=== PATIENT | female | born 1955 | race Native Hawaiian/Other Pacific Islander ===

== ENCOUNTER 2018-11-29 10:57 | Observation (INO) | payer BC, OTHER ==
[2018-11-29] MEDS ORDERED: Sodium Chloride 0.9% 500 ML IV STA (11:38)
[2018-11-29] MEDS ORDERED: Sodium Chloride 0.9% 500 ML IV ONE (11:54)
[2018-11-29 11:57] LABS: BASO % 0.7 % (0.0-2.0); EOS # 0.2 K/uL (0.0-0.7); EOS % 2.8 % (0.0-4.0); HEMOGLOBIN 14.2 g/dL (11.0-16.0); LYMPH # 0.9 K/uL (1.0-4.3); LYMPH % 14.4 % (20.0-40.0); MEAN CELL VOLUME 92.3 fL (81.0-99.0); MEAN CORPUSCULAR HEMOGLOBIN 31.3 pg (27.0-31.0); MEAN CORPUSCULAR HGB CONC 33.9 g/dL (33.0-37.0); MEAN PLATELET VOLUME 8.8 fL (7.2-11.7); MONO # 0.3 K/uL (0.0-0.8); MONO % 4.2 % (0.0-10.0); NEUT # 4.9 K/uL (1.8-7.0); NEUT % 77.9 % (50.0-75.0); RBC 4.54 Mil/uL (3.80-5.20); RED CELL DISTRIBUTION WIDTH 13.6 % (11.5-14.5); WHITE BLOOD COUNT 6.2 K/uL (4.8-10.8)
[2018-11-29 12:09] LABS: ALB/GLOB RATIO 1.4 (1.0-2.1); ALBUMIN 4.2 g/dL (3.5-5.0); ALT/SGPT 51 U/L (9-52); AST/SGOT 48 U/L (14-36); BLOOD UREA NITROGEN 9 mg/dL (7-17); CALCIUM 9.6 mg/dl (8.6-10.4); GFR NON-AFRICAN AMERICAN > 60
[2018-11-29 12:20] LABS: CK-MB 0.37 ng/mL (0.0-3.38)
--- NOTE | 2018-11-29 12:35 | RAD ---
Date of service: 11/29/2018 PROCEDURE: CHEST RADIOGRAPH, 1 VIEW HISTORY: syncope COMPARISON: None available. FINDINGS: LUNGS: The lungs are well inflated and clear. There is discoid atelectasis/scarring in the left mid lung. PLEURA: No pneumothorax or pleural effusion. CARDIOVASCULAR: The heart is normal in size. No aortic atherosclerotic calcifications present. OSSEOUS STRUCTURES: Within normal limits for the patient's age. VISUALIZED UPPER ABDOMEN: Normal. OTHER FINDINGS: None. IMPRESSION: No active pulmonary disease.
--- NOTE | 2018-11-29 12:58 | C.PDOC ---
History Of Present Illness 63 year old female presents to the ED stating she has not been feeling well for the past 5 days. She complains of dizziness, described as room spinning, associated with nausea for the past week. Patient was seen by PMD 5 days ago for the same, diagnosed with vertigo, and prescribed meclizine. Patient is also complaining of a mild headache. This morning the dizziness and nausea worsened, she had few episodes of vomiting, and then had an episode of syncope. States she fell onto her bed, denies head trauma or other injury. 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 Otherwise she denies any visual loss, photophobia, chest pain, SOB, or palpitations. Time Seen by Provider: 11/29/18 11:30 Chief Complaint (Nursing): Syncope History Per: Patient History/Exam Limitations: no limitations Onset/Duration Of Symptoms: Days Current Symptoms Are (Timing): Still Present Number Of Syncopal Episodes: 1 Activity At Onset Of Symptoms: Standing Seizure Or Post-ictal Symptoms: None Possible Causative Factor(s): Vertigo Fall Associated With With Symptoms: Yes, No Injury As Result Of Fall Past Medical History Reviewed: Historical Data, Nursing Documentation, Vital Signs Vital Signs: Last Vital Signs Temp 97.8 F 11/29/18 11:11 Pulse 58 L 11/29/18 11:11 Resp 16 11/29/18 11:11 BP 127/77 11/29/18 11:11 Pulse Ox 98 11/29/18 11:11 - Medical History PMH: HTN, Hypercholesterolemia Other PMH: Vertigo Family History: States: No Known Family Hx - Social History Hx Alcohol Use: No Hx Substance Use: No Review Of Systems Except As Marked, All Systems Reviewed And Found Negative. Constitutional: Negative for: Fever, Chills Eyes: Negative for: Vision Change Cardiovascular: Negative for: Chest Pain, Palpitations Respiratory: Negative for: Cough, Shortness of Breath Gastrointestinal: Positive for: Nausea, Vomiting. Negative for: Abdominal Pain, Diarrhea Musculoskeletal: Negative for: Neck Pain, Back Pain Skin: Negative for: Lesions Neurological: Positive for: Headache, Dizziness, Other (Syncope). Negative for: Weakness, Numbness, Change in Speech, Confusion, Altered Mental Status Physical Exam - Physical Exam Appears: Non-toxic, No Acute Distress Skin: Warm, Dry, No Rash Head: Atraumatic, Normacephalic, Other (Left-sided facial paralysis, mild, chronic per patient) Eye(s): bilateral: Normal Inspection (no nystagmus), PERRL, EOMI Nose: Normal Oral Mucosa: Moist Neck: Normal ROM, No Midline Cervical Tenderness, No Paracervical Tenderness, Supple Chest: Symmetrical Cardiovascular: Rhythm Regular, No Murmur Respiratory: Normal Breath Sounds, No Rales, No Rhonchi, No Wheezing Gastrointestinal/Abdominal: Soft, No Tenderness, No Distention Back: Normal Inspection Extremity: Bilateral: Atraumatic, Normal Color And Temperature, Normal ROM Pulses: Left Radial: Normal, Right Radial: Normal Neurological/Psych: Oriented x3, Normal Speech, Normal Cognition, Normal Cranial Nerves (2-12 grossly intact), No Cerebellar Signs, Other (No new focal deficit) ED Course And Treatment - Laboratory Results Result Diagrams: 11/29/18 11:47 11/29/18 11:47 Lab Results: PT 11.0 SECONDS (9.7-12.2) 11/29/18 11:47 INR 1.0 11/29/18 11:47 APTT 29 SECONDS (21-34) 11/29/18 11:47 Troponin I < 0.0120 ng/mL (0.00-0.120) 11/29/18 11:47 Total Bilirubin 0.6 mg/dL (0.2-1.3) 11/29/18 11:47 AST 48 U/L (14-36) H 11/29/18 11:47 ALT 51 U/L (9-52) 11/29/18 11:47 Alkaline Phosphatase 98 U/L (38-126) 11/29/18 11:47 Total Protein 7.3 g/dL (6.3-8.3) 11/29/18 11:47 Albumin 4.2 g/dL (3.5-5.0) 11/29/18 11:47 Globulin 3.0 gm/dL (2.2-3.9) 11/29/18 11:47 Albumin/Globulin Ratio 1.4 (1.0-2.1) 11/29/18 11:47 ECG: Interpreted By Me, Viewed By Me ECG Rhythm: Sinus Bradycardia, Nonspecific Changes (Nonspecific T wave changes) Rate From EC (bpm) O2 Sat by Pulse Oximetry: 98 (RA) Pulse Ox Interpretation: Normal - Other Rad CXR X-Ray: Viewed By Me, Read By Radiologist Interpretation: Accession No. : [id number]. Patient Name / ID : LISA HUA / [id number]. Exam Date : 11/29/2018 11:49:29 ( Approved ). Study Comment : Sex / Age : F / 63Y. Creator : Maya Dewitt MD. Dictator : Maya Dewitt MD. Or Scrub Tech : Salt Lifter : Maya Dewitt MD. Approver2 : Report Date : 11/29/2018 12:31:47. My Comment : . Date of service: 11/29/2018. PROCEDURE: CHEST RADIOGRAPH, 1 VIEW. HISTORY: syncope. COMPARISON: None available. FINDINGS: LUNGS: The lungs are well inflated and clear. There is discoid atelectasis/scarring in the left mid lung. PLEURA: No pneumothorax or pleural effusion. CARDIOVASCULAR: The heart is normal in s ize. No aortic atherosclerotic calcifications present. OSSEOUS STRUCTURES: Within normal limits for the patient's age. VISUALIZED UPPER ABDOMEN: Normal. OTHER FINDINGS: None. IMPRESSION: No active pulmonary disease. - CT Scan/US CT Head Other Rad Studies (CT/US): Read By Radiologist, Radiology Report Reviewed CT/US Interpretation: Accession No. : [id number]. Patient Name / ID : LISA HUA / [id number]. Exam Date : 11/29/2018 13:28:53 ( Approved ). Study Comment : Sex / Age : F / 63Y. Creator : Sofia Thapa RT. Dictator : Maya Dewitt MD. Or Scrub Tech : Salt Lifter : Maya Dewitt MD. Approver2 : Report Date : 11/29/2018 13:39:25. My Comment : . Date of service: 11/29/2018. PROCEDURE: CT HEAD WITHOUT CONTRAST. HISTORY: syncope. COMPARISON: None available. TECHNIQUE: Axial computed tomography images were obtained through the head/brain without intravenous contrast. Radiation dose: Total exam DLP = 903.19 mGy-cm. This CT exam was performed using one or more of the following dose reduction techniques: Automated exposure control, adjustment of the mA and/or kV according to patient size, and/or use of iterative reconstruction technique. FINDINGS: HEMORRHAGE: No intracranial hemorrhage. BRAIN: [place]-white matter differentiation is preserved. There is no mass, mass effect or abnormal extra-axial fluid collection. There is no territorial infarction. The midline sagittal structures are normal.There are coarse atherosclerotic calcifications in the cavernous carotid arteries. VENTRICLES: The ventricles are normal in size, shape and configuration. CALVARIUM: There is no calvarial fracture or extracranial soft tissue swelling. PARANASAL SINUSES: There is moderate mucoperiosteal thickening in the ethmoid air cells and fluid in the right sphenoid chamber. MASTOID AIR CELLS: Predominantly clear. OTHER FINDINGS: None. IMPRESSION: No acute intracranial abnormality. Chronic ethmoid sinusitis. Fluid in the right sphenoid chamber may represent acute sinusitis in the appropriate clinical setting. Progress Note: Blood work and urine sent to the lab. EKG, CXR, and CT Head ordered. Administered IVF hydration and 10 mg IV Reglan. Labs and imaging reviewed. Case discussed w/ Dr. Baylee Crain, who [facility]. Disposition Counseled Patient/Family Regarding: Studies Performed, Diagnosis - Disposition Disposition: HOSPITALIZED Disposition Time: 14:16 Condition: FAIR - POA Present On Arrival: Falls Or Trauma - Clinical Impression Clinical Impression: Syncope - PA / HORSE RACING ANALYST / Resident Statement MD/DO has reviewed & agrees with the documentation as recorded. - Scribe Statement The provider has reviewed the documentation as recorded by the Scribe Natalie Peters All medical record entries made by the Scribe were at my direction and perso brisa dictated by me. I have reviewed the chart and agree that the record accurately reflects my personal performance of the history, physical exam, medical decision making, and the department course for this patient. I have also personally directed, reviewed, and agree with the discharge instructions and disposition. Decision To Admit - Pt Status Changed To: Hospital Disposition Of: Observation - . Bed Request Type: Telemetry Admitting Physician: Baylee Mcbride Patient Diagnosis: Syncope
--- NOTE | 2018-11-29 14:02 | CT ---
Date of service: 11/29/2018 PROCEDURE: CT HEAD WITHOUT CONTRAST. HISTORY: syncope COMPARISON: None available. TECHNIQUE: Axial computed tomography images were obtained through the head/brain without intravenous contrast. Radiation dose: Total exam DLP = 903.19 mGy-cm. This CT exam was performed using one or more of the following dose reduction techniques: Automated exposure control, adjustment of the mA and/or kV according to patient size, and/or use of iterative reconstruction technique. FINDINGS: HEMORRHAGE: No intracranial hemorrhage. BRAIN: [place]-white matter differentiation is preserved. There is no mass, mass effect or abnormal extra-axial fluid collection. There is no territorial infarction. The midline sagittal structures are normal.There are coarse atherosclerotic calcifications in the cavernous carotid arteries. VENTRICLES: The ventricles are normal in size, shape and configuration. CALVARIUM: There is no calvarial fracture or extracranial soft tissue swelling. PARANASAL SINUSES: There is moderate mucoperiosteal thickening in the ethmoid air cells and fluid in the right sphenoid chamber. MASTOID AIR CELLS: Predominantly clear. OTHER FINDINGS: None. IMPRESSION: No acute intracranial abnormality. Chronic ethmoid sinusitis. Fluid in the right sphenoid chamber may represent acute sinusitis in the appropriate clinical setting.
[2018-11-29 15:52] LABS: URINE BILIRUBIN NEGATIVE (NEGATIVE); URINE BLOOD NEGATIVE (NEGATIVE); URINE CLARITY Clear (Clear); URINE COLOR Yellow (YELLOW); URINE GLUCOSE (UA) NORMAL (Normal); URINE LEUKOCYTE ESTERASE NEG Leu/uL (Negative); URINE PROTEIN 1+ mg/dL (NEGATIVE); URINE UROBILINOGEN NORMAL mg/dL (0.2-1.0)
[2018-11-29 20:44] LABS: CK-MB 0.36 ng/mL (0.0-3.38)
[2018-11-30 04:20] LABS: HEMOGLOBIN 14.2 g/dL (11.0-16.0); MEAN CORPUSCULAR HEMOGLOBIN 30.5 pg (27.0-31.0); MEAN CORPUSCULAR HGB CONC 33.1 g/dL (33.0-37.0); MEAN PLATELET VOLUME 8.3 fL (7.2-11.7); RBC 4.64 Mil/uL (3.80-5.20); RED CELL DISTRIBUTION WIDTH 13.2 % (11.5-14.5); WHITE BLOOD COUNT 5.6 K/uL (4.8-10.8)
[2018-11-30 04:46] LABS: ALB/GLOB RATIO 1.3 (1.0-2.1); ALBUMIN 3.9 g/dL (3.5-5.0); ALT/SGPT 46 U/L (9-52); AST/SGOT 24 U/L (14-36); BLOOD UREA NITROGEN 16 mg/dL (7-17); CALCIUM 9.5 mg/dl (8.6-10.4); CK-MB 0.24 ng/mL (0.0-3.38); GFR NON-AFRICAN AMERICAN > 60
[2018-11-30] MEDS: Enoxaparin 40 mg Syringe SC SCH (11:09)
[2018-11-30 12:02] LABS: CK-MB 0.32 ng/mL (0.0-3.38)
--- NOTE | 2018-11-30 12:06 | CP.PCM.HP ---
History of Present Illness - History of Present Illness History of Present Illness: 63 y/o female with known history of hypertension who was admitted because of symcope. Patien claims that she has been feeling dizzy lately. Was at the ER in [facility] last week because of near syncope also and was discharged after tests were done which were reportedly normal. She was given Meclizine that she took and felt better, however, she started to have headache and developed nausea and vomited. She also subsequently passed out reportedly twice before she called for help. She was brought to the ER and admitted for further observation. Present on Admission - Present on Admission Any Indicators Present on Admission: No Review of Systems - Review of Systems All systems: reviewed and no additional remarkable complaints except - Constitutional Constitutional: Fatigue - EENT Eyes: As Per HPI Nose/Mouth/Throat: As Per HPI - Cardiovascular Cardiovascular: Lightheadedness, Syncope - Respiratory Respiratory: Dyspnea on Exertion - Gastrointestinal Gastrointestinal: Abdominal Pain, Nausea, Vomiting - Genitourinary Genitourinary: As Per HPI - Musculoskeletal Musculoskeletal: Muscle Weakness Past Patient History - Infectious Disease Hx of Infectious Diseases: None - Past Social History Smoking Status: Never Smoked Chewing Tobacco Use: No Cigar Use: No Alcohol: None Home Situation {Lives}: Alone - CARDIAC Hx Cardiac Disorders: No Hx Hypercholesterolemia: Yes Hx Hypertension: Yes - NEUROLOGICAL Hx Syncope: Yes Hx Vertigo: Yes Other/Comment: involuntary facial muscle spasms, tics - ENDOCRINE/METABOLIC Hx Endocrine Disorders: Yes Hx Diabetes Mellitus Type 2: Yes Other/Comment: Borderline Diabetes - PSYCHIATRIC Hx Substance Use: No Meds Allergies/Adverse Reactions: Allergies Allergy/AdvReac Type Severity Reaction Status Date / Time almond Allergy ANAPHYLAXIS Verified 11/30/18 18:23 ciprofloxacin Allergy RASH Verified 11/30/18 18:26 erythromycin base Allergy RASH Verified 11/30/18 18:27 lecithin, soy Allergy COUGH Verified 11/30/18 18:24 Physical Exam - Constitutional Appears: No Acute Distress - Head Exam Head Exam: NORMAL INSPECTION - Eye Exam Eye Exam: Normal appearance, PERRL - ENT Exam ENT Exam: Normal Exam - Neck Exam Neck exam: Positive for: Normal Inspection - Respiratory Exam Respiratory Exam: Clear to Auscultation Bilateral, NORMAL BREATHING PATTERN - Cardiovascular Exam Cardiovascular Exam: Bradycardia, REGULAR RHYTHM, +S1, +S2 - GI/Abdominal Exam GI & Abdominal Exam: Normal Bowel Sounds, Soft - Extremities Exam Extremities exam: Positive for: normal inspection - Neurological Exam Neurological exam: Alert, Oriented x3 - Psychiatric Exam Psychiatric exam: Normal Affect, Normal Mood Results - Vital Signs Recent Vital Signs: Last Vital Signs Temp 97.4 F L 11/30/18 10:41 Pulse 57 L 11/30/18 10:41 Resp 16 11/30/18 10:41 BP 140/82 11/30/18 10:41 Pulse Ox 97 11/30/18 10:41 - Labs Result Diagrams: 12/01/18 07:57 12/01/18 07:57 Labs: Laboratory Results - last 24 hr 11/29/18 11/29/18 11/29/18 11:47 11:47 15:28 WBC RBC Hgb Hct MCV MCH MCHC RDW Plt Count MPV PT 11.0 INR 1.0 APTT 29 Sodium 139 Potassium 3.9 Chloride 102 Carbon Dioxide 28 Anion Gap 12 BUN 9 Creatinine 0.5 L Est GFR ( Amer) > 60 Est GFR (Non-Af Amer) > 60 POC Glucose (mg/dL) Random Glucose 152 H Hemoglobin A1c Calcium 9.6 Total Bilirubin 0.6 AST 48 H ALT 51 Alkaline Phosphatase 98 Total Creatine Kinase 30 CK-MB (Mass) 0.37 Troponin I < 0.0120 Total Protein 7.3 Albumin 4.2 Globulin 3.0 Albumin/Globulin Ratio 1.4 Urine Color Yellow Urine Clarity Clear Urine pH 8.0 Ur Specific [place] 1.017 Urine Protein 1+ H Urine Glucose (UA) Normal Urine Ketones Negative Urine Blood Negative Urine Nitrate Negative Urine Bilirubin Negative Urine Urobilinogen Normal Ur Leukocyte Esterase Neg Urine WBC (Auto) < 1 Urine RBC (Auto) < 1 11/29/18 11/30/18 11/30/18 20:18 04:18 04:18 WBC 5.6 RBC 4.64 Hgb 14.2 Hct 42.7 MCV 92.0 MCH 30.5 MCHC 33.1 RDW 13.2 Plt Count 299 MPV 8.3 PT INR APTT Sodium 135 Potassium 3.9 Chloride 99 Carbon Dioxide 28 Anion Gap 12 BUN 16 Creatinine 0.7 Est GFR ( Amer) > 60 Est GFR (Non-Af Amer) > 60 POC Glucose (mg/dL) Random Glucose 123 H Hemoglobin A1c Calcium 9.5 Total Bilirubin 0.3 AST 24 ALT 46 Alkaline Phosphatase 93 Total Creatine Kinase 34 CK-MB (Mass) 0.36 Troponin I < 0.0120 Total Protein 6.8 Albumin 3.9 Globulin 2.9 Albumin/Globulin Ratio 1.3 Urine Color Urine Clarity Urine pH Ur Specific [place] Urine Protein Urine Glucose (UA) Urine Ketones Urine Blood Urine Nitrate Urine Bilirubin Urine Urobilinogen Ur Leukocyte Esterase Urine WBC (Auto) Urine RBC (Auto) 11/30/18 11/30/18 11/30/18 04:18 04:18 08:17 WBC RBC Hgb Hct MCV MCH MCHC RDW Plt Count MPV PT INR APTT Sodium Potassium Chloride Carbon Dioxide Anion Gap BUN Creatinine Est GFR ( Amer) Est GFR (Non-Af Amer) POC Glucose (mg/dL) 135 H Random Glucose Hemoglobin A1c 6.9 H Calcium Total Bilirubin AST ALT Alkaline Phosphatase Total Creatine Kinase 26 L CK-MB (Mass) 0.24 Troponin I < 0.0120 Total Protein Albumin Globulin Albumin/Globulin Ratio Urine Color Urine Clarity Urine pH Ur Specific [place] Urine Protein Urine Glucose (UA) Urine Ketones Urine Blood Urine Nitrate Urine Bilirubin Urine Urobilinogen Ur Leukocyte Esterase Urine WBC (Auto) Urine RBC (Auto) 11/30/18 11:33 WBC RBC Hgb Hct MCV MCH MCHC RDW Plt Count MPV PT INR APTT Sodium Potassium Chloride Carbon Dioxide Anion Gap BUN Creatinine Est GFR ( Amer) Est GFR (Non-Af Amer) POC Glucose (mg/dL) Random Glucose Hemoglobin A1c Calcium Total Bilirubin AST ALT Alkaline Phosphatase Total Creatine Kinase 34 CK-MB (Mass) 0.32 Troponin I Total Protein Albumin Globulin Albumin/Globulin Ratio Urine Color Urine Clarity Urine pH Ur Specific [place] Urine Protein Urine Glucose (UA) Urine Ketones Urine Blood Urine Nitrate Urine Bilirubin Urine Urobilinogen Ur Leukocyte Esterase Urine WBC (Auto) Urine RBC (Auto) Assessment & Plan (1) Syncope Assessment and Plan: Recurrent syncope over the last few days associated with nausea, vomiting and abdominal discomfort, ? Vasovagal syncope, r/o Cardiac arrhythmia in view of persistent bradycardia, R/O TIA Will put on telemetry, get echocardiogram and carotid study, abd u/s Status: Acute Priority: Medium (2) Vertigo Assessment and Plan: will put on Meclizine and observe Status: Acute Priority: High (3) Hypertension Assessment and Plan: Currently controlled on present meds. Will d/c HCTZ Status: Chronic Priority: Medium (4) Bradycardia Assessment and Plan: Heart rate below 50 on admission- ?Vagal effect from the abd pain, nausea or vomiting. Will put on telemetry Status: Acute Priority: Low (5) Diabetes mellitus type 2 in nonobese Assessment and Plan: Will put on accucheck and diabetic diet Status: Acute
[2018-11-30 16:36] VITALS: RESP 20
--- NOTE | 2018-11-30 21:32 | CARD ---
APPROVED REPORT Date of service: 11/29/2018 EKG Measurement Heart [id number] <Conclusion> Sinus bradycardia Nonspecific T wave abnormality Abnormal ECG
--- NOTE | 2018-11-30 21:42 | CARD ---
APPROVED REPORT Date of service: 11/30/2018 EXAM: Two-dimensional and M-mode echocardiogram with Doppler and color Doppler. INDICATION Dizziness and Vertigo Syncope RISK FACTORS Hypertension Diabetes 2D DIMENSIONS IVSd1.2 (0.7-1.1cm)LVDd3.4 (3.9-5.9cm) PWd0.8 (0.7-1.1cm)LA [id number] (18-58mL) LVDs2.2 (2.5-4.0cm)FS (%) 33.9 % LVEF (%)64.1 (>50%)LVEF (Ansari's)62.63 % M-Mode DIMENSIONS Left Atrium (MM)4.27 (2.5-4.0cm)IVSd1.14 (0.7-1.1cm) Aortic Root3.61 (2.2-3.7cm)LVDd4.67 (4.0-5.6cm) Aortic Cusp Exc.1.92 (1.5-2.0cm)PWd1.09 (0.7-1.1cm) FS (%) 31 %LVDs3.23 (2.0-3.8cm) LVEF (%)59 (>50%) Mitral Valve MV E Fomsulsg00.6cm/sMV A Wpzmdoye860.6cm/sE/A ratio0.5 TDI Lateral E' Peak V5.13cm/sMedial E' Peak V2.42cm/sE/Lateral E'14.7 E/Medial E'31.2 Tricuspid Valve TR Peak [id number]/sTR Peak [id number] LEFT VENTRICLE The left ventricle is normal size. There is normal left ventricular wall thickness. Left ventricle systolic function is normal. The Ejection Fraction is 55-60%. There is normal LV segmental wall motion. Transmitral Doppler flow pattern is abnormal.Grade I-abnormal relaxation pattern. No left ventricle thrombus noted on this study. RIGHT VENTRICLE The right ventricle is normal size. The right ventricular systolic function is normal. ATRIA The left atrium is mildly dilated. The right atrium size is normal. AORTIC VALVE The aortic valve is mildly thickened. The aortic valve is trileaflet. There is trace to mild aortic regurgitation. There is no aortic valvular stenosis. There is no aortic valvular vegetation. MITRAL VALVE The mitral valve is normal in structure. There is no evidence of mitral valve prolapse. There is no mitral valve stenosis. Mitral regurgitation is trace to mild. TRICUSPID VALVE The tricuspid valve is normal in structure. There is trace tricuspid regurgitation. Right ventricular systolic pressure is estimated at less than 30 mmHg. There is no pulmonary hypertension. There is no tricuspid valve prolapse or vegetation. There is no tricuspid valve stenosis. PULMONIC VALVE The pulmonic valve is not well visualized. There is no pulmonic valvular regurgitation. There is no pulmonic valvular stenosis. GREAT VESSELS The aortic root is normal in size. The IVC is normal in size and collapses >50% with inspiration. PERICARDIAL EFFUSION There is no pericardial effusion. There is no pleural effusion. <Conclusion> The left ventricle is normal size. Left ventricle systolic function is normal. The Ejection Fraction is 55-60%. Transmitral Doppler flow pattern is abnormal.Grade I-abnormal relaxation pattern. The right ventricle is normal size. The right ventricular systolic function is normal. The left atrium is mildly dilated. The right atrium size is normal. There is trace to mild aortic regurgitation. Mitral regurgitation is trace to mild. There is trace tricuspid regurgitation. There is no pulmonary hypertension.
[2018-12-01 08:10] LABS: BASO % 0.4 % (0.0-2.0); EOS # 0.2 K/uL (0.0-0.7); EOS % 2.9 % (0.0-4.0); HEMOGLOBIN 15.1 g/dL (11.0-16.0); LYMPH # 1.5 K/uL (1.0-4.3); LYMPH % 17.6 % (20.0-40.0); MEAN CELL VOLUME 91.9 fL (81.0-99.0); MEAN CORPUSCULAR HEMOGLOBIN 31.1 pg (27.0-31.0); MEAN CORPUSCULAR HGB CONC 33.8 g/dL (33.0-37.0); MEAN PLATELET VOLUME 8.4 fL (7.2-11.7); MONO # 0.5 K/uL (0.0-0.8); MONO % 6.3 % (0.0-10.0); NEUT # 6.2 K/uL (1.8-7.0); NEUT % 72.8 % (50.0-75.0); RBC 4.85 Mil/uL (3.80-5.20); RED CELL DISTRIBUTION WIDTH 13.4 % (11.5-14.5)
[2018-12-01 08:11] LABS: WHITE BLOOD COUNT 8.5 K/uL (4.8-10.8)
[2018-12-01 08:22] LABS: ALB/GLOB RATIO 1.5 (1.0-2.1); ALBUMIN 4.4 g/dL (3.5-5.0); ALT/SGPT 37 U/L (9-52); AST/SGOT 26 U/L (14-36); BLOOD UREA NITROGEN 17 mg/dL (7-17); CALCIUM 10.2 mg/dl (8.6-10.4); GFR NON-AFRICAN AMERICAN > 60
[2018-12-01 08:31] VITALS: TEMP 98.2
[2018-12-01 09:41] VITALS: O2SAT 94
[2018-12-01] MEDS: Enoxaparin 40 mg Syringe SC SCH (10:04)
[2018-12-01 10:05] VITALS: BP 118/68
--- NOTE | 2018-12-01 11:27 | CP.PCM.DIS ---
Provider - Provider Date of Admission: 11/29/18 1 Attending physician: Baylee Mcbride MD Primary care physician: Carina Mcbride Time Spent in preparation of Discharge (in minutes): 45 Diagnosis - Discharge Diagnosis (1) Syncope Status: Resolved Priority: Medium Comment: cardiac enzymes- wnl. Echo noted. patient feeling much better. Dizziness much improved (2) Vertigo Status: Acute Priority: Medium Comment: Improved on Meclizine (3) Hypertension Status: Chronic Priority: Medium (4) Bradycardia Status: Resolved Priority: Low Comment: back to nsr in the 70's (5) Diabetes mellitus type 2 in nonobese Status: Chronic Priority: Medium Hospital Course - Lab Results Lab Results: Most Recent Lab Values WBC 8.5 K/uL (4.8-10.8) D 12/01/18 07:57 RBC 4.85 Mil/uL (3.80-5.20) 12/01/18 07:57 Hgb 15.1 g/dL (11.0-16.0) 12/01/18 07:57 Hct 44.6 % (34.0-47.0) 12/01/18 07:57 MCV 91.9 fL (81.0-99.0) 12/01/18 07:57 MCH 31.1 pg (27.0-31.0) H 12/01/18 07:57 MCHC 33.8 g/dL (33.0-37.0) 12/01/18 07:57 RDW 13.4 % (11.5-14.5) 12/01/18 07:57 Plt Count 357 K/uL (130-400) 12/01/18 07:57 MPV 8.4 fL (7.2-11.7) 12/01/18 07:57 Neut % (Auto) 72.8 % (50.0-75.0) 12/01/18 07:57 Lymph % (Auto) 17.6 % (20.0-40.0) L 12/01/18 07:57 [place] % (Auto) 6.3 % (0.0-10.0) 12/01/18 07:57 Eos % (Auto) 2.9 % (0.0-4.0) 12/01/18 07:57 Baso % (Auto) 0.4 % (0.0-2.0) 12/01/18 07:57 Neut # (Auto) 6.2 K/uL (1.8-7.0) 12/01/18 07:57 Lymph # (Auto) 1.5 K/uL (1.0-4.3) 12/01/18 07:57 [place] # (Auto) 0.5 K/uL (0.0-0.8) 12/01/18 07:57 Eos # (Auto) 0.2 K/uL (0.0-0.7) 12/01/18 07:57 Baso # (Auto) 0.0 K/uL (0.0-0.2) 12/01/18 07:57 PT 11.0 SECONDS (9.7-12.2) 11/29/18 11:47 INR 1.0 11/29/18 11:47 APTT 29 SECONDS (21-34) 11/29/18 11:47 Sodium 137 mmol/L (132-148) 12/01/18 07:57 Potassium 4.3 mmol/L (3.6-5.2) 12/01/18 07:57 Chloride 100 mmol/L (98-107) 12/01/18 07:57 Carbon Dioxide 29 mmol/L (22-30) 12/01/18 07:57 Anion Gap 12 (10-20) 12/01/18 07:57 BUN 17 mg/dL (7-17) 12/01/18 07:57 Creatinine 0.7 mg/dL (0.7-1.2) 12/01/18 07:57 Est GFR ( Amer) > 60 12/01/18 07:57 Est GFR (Non-Af Amer) > 60 12/01/18 07:57 POC Glucose (mg/dL) 165 mg/dL (65-110) H 12/01/18 06:08 Random Glucose 149 mg/dL (65-105) H D 12/01/18 07:57 Hemoglobin A1c 6.9 % (4.2-6.5) H 11/30/18 04:18 Calcium 10.2 mg/dl (8.6-10.4) 12/01/18 07:57 Total Bilirubin 0.4 mg/dL (0.2-1.3) 12/01/18 07:57 AST 26 U/L (14-36) 12/01/18 07:57 ALT 37 U/L (9-52) 12/01/18 07:57 Alkaline Phosphatase 98 U/L (38-126) 12/01/18 07:57 Total Creatine Kinase 34 U/L (30-135) 11/30/18 11:33 CK-MB (Mass) 0.32 ng/mL (0.0-3.38) 11/30/18 11:33 Troponin I < 0.0120 ng/mL (0.00-0.120) 11/30/18 11:33 Total Protein 7.5 g/dL (6.3-8.3) 12/01/18 07:57 Albumin 4.4 g/dL (3.5-5.0) 12/01/18 07:57 Globulin 3.1 gm/dL (2.2-3.9) 12/01/18 07:57 Albumin/Globulin Ratio 1.5 (1.0-2.1) 12/01/18 07:57 Urine Color Yellow (YELLOW) 11/29/18 15:28 Urine Clarity Clear (Clear) 11/29/18 15:28 Urine pH 8.0 (5.0-8.0) 11/29/18 15:28 Ur Specific [place] 1.017 (1.003-1.030) 11/29/18 15:28 Urine Protein 1+ mg/dL (NEGATIVE) H 11/29/18 15:28 Urine Glucose (UA) Normal mg/dL (Normal) 11/29/18 15:28 Urine Ketones Negative mg/dL (NEGATIVE) 11/29/18 15:28 Urine Blood Negative (NEGATIVE) 11/29/18 15:28 Urine Nitrate Negative (NEGATIVE) 11/29/18 15:28 Urine Bilirubin Negative (NEGATIVE) 11/29/18 15:28 Urine Urobilinogen Normal mg/dL (0.2-1.0) 11/29/18 15:28 Ur Leukocyte Esterase Neg Carly/uL (Negative) 11/29/18 15:28 Urine WBC (Auto) < 1 /hpf (0-5) 11/29/18 15:28 Urine RBC (Auto) < 1 /hpf (0-3) 11/29/18 15:28 Discharge Exam - Head Exam Head Exam: NORMAL INSPECTION - Eye Exam Eye Exam: Normal appearance - Neck Exam Neck exam: Normal Inspection - Respiratory Exam Respiratory Exam: Clear to PA & Lateral, NORMAL BREATHING PATTERN - Cardiovascular Exam Cardiovascular Exam: REGULAR RHYTHM, +S1 - GI/Abdominal Exam GI & Abdominal Exam: Normal Bowel Sounds, Soft - Extremities Exam Extremities exam: normal inspection - Neurological Exam Neurological exam: Alert, Oriented x3 Discharge Plan - Follow Up Plan Condition: FAIR Disposition: HOME/ ROUTINE
[2018-12-01 12:35] VITALS: PULSE 71
--- NOTE | 2018-12-01 13:52 | VASCLAB ---
Date of service: 11/30/2018 PROCEDURE: Carotid Duplex Exam. HISTORY: syncope COMPARISON: None available. TECHNIQUE: Grayscale and duplex Doppler evaluation of the cervical carotid and vertebral arteries were performed. The common carotid, carotid bifurcations and cervical Internal Carotid Artery (ICA) and proximal External Carotid Artery (ECA) were evaluated. The vertebral arteries were evaluated for gross patency and flow direction. Report prepared by Chinedu Rosenberg, BS, RVT FINDINGS: RIGHT CAROTID ARTERIES: 1. Common Carotid Artery: No significant focal plaque formation of the right common carotid artery. Maximum Peak Systolic velocity: 68 cm/sec: End-diastolic velocity 19 cm/sec. 2. Carotid Bifurcation: plaque formation. Maximum Peak Systolic velocity: 64 cm/sec: End-diastolic velocity 14 cm/sec. 3. Internal Carotid Artery: Plaque description: 3.1. Proximal Segment: Peak systolic velocity 50 cm/sec: End-diastolic velocity 13 cm/sec - % stenosis 0-15% 3.2. Middle Segment: Peak systolic velocity 55 cm/sec: End-diastolic velocity 18 cm/sec - % stenosis 0-15% 3.3. Distal Segment: Peak systolic velocity 43 cm/sec: End-diastolic velocity 12 cm/sec - % stenosis 0-15% 4. External Carotid Artery: No significant focal plaque formation. Peak systolic velocity 88 cm/sec 5. ICA/CCA Ratio: 0.9 LEFT CAROTID ARTERIES: 1. Common Carotid Artery: No significant focal plaque formation of the left common carotid artery. Maximum Peak Systolic velocity: 68 cm/sec: End-diastolic velocity 17 cm/sec. 2. Carotid Bifurcation: plaque formation. Maximum Peak Systolic velocity: 64 cm/sec: End-diastolic velocity 17 cm/sec. 3. Internal Carotid Artery: Plaque description: 3.1. Proximal Segment: Peak systolic velocity 55 cm/sec: End-diastolic velocity 16 cm/sec - % stenosis 0-15% 3.2. Middle Segment: Peak systolic velocity 49 cm/sec: End-diastolic velocity 16 cm/sec - % stenosis 0-15% 3.3. Distal Segment: Peak systolic velocity 59 cm/sec: End-diastolic velocity 21 cm/sec - % stenosis 0-15% 4. External Carotid Artery: No significant focal plaque formation. Peak systolic velocity 94 cm/sec 5. ICA/CCA Ratio: 0.9 VERTEBRAL ARTERIES: 1. Right Vertebral Artery: The right vertebral artery flow direction is antegrade. 2. Left Vertebral Artery: The left vertebral artery flow direction is antegrade. OTHER FINDINGS: 1. Right Brachial Blood pressure: 156 mmHg. 2. Left Brachial Blood pressure: 150 mmHg. 3. No atherosclerotic calcification present IMPRESSION: RIGHT: Duplex scan does not suggest hemodynamically significant stenosis of the right extracranial carotid arteries. LEFT: Duplex scan does not suggest hemodynamically significant stenosis of the left extracranial carotid arteries.
--- NOTE | 2018-12-01 15:02 | US ---
Date of service: 11/30/2018 HISTORY: abdominal pain COMPARISON: None. TECHNIQUE: Sonographic evaluation of the abdomen. FINDINGS: LIVER: Measures 11.5 cm. Normal echogenicity of the liver parenchyma. No mass. No intrahepatic bile duct dilatation. GALLBLADDER: Prior cholecystectomy apparent. COMMON BILE DUCT: Measures 5.0 mm. No stones. No dilatation. PANCREAS: The tail of the pancreas is obscured by overlying bowel gas with remainder unremarkable. RIGHT KIDNEY: Measures 10.7cm. Normal echogenicity. No calculus, mass, or hydronephrosis. LEFT KIDNEY: Measures 11.1cm. Normal echogenicity. No calculus, mass, or hydronephrosis. There is a intrarenal cystic lesion identified at the mid to lower pole left kidney which appears simple measuring 4.0 x 3.4 x 4.2 cm. No additional left renal findings. SPLEEN: Normal in size and contour. No mass. AORTA: No aneurysmal dilatation. IVC: Unremarkable. OTHER FINDINGS: None. IMPRESSION: 1. Prior cholecystectomy apparent. No definite biliary tree dilatation identified as discussed above. 2. Simple cyst mid to lower pole left kidney 4.2 cm greatest dimension. 3. Partial imaging of the pancreas with remainder the examination unremarkable. Concordant preliminary report from [facility], 11/30/2018, 9:11 p.m..
--- NOTE | 2018-12-01 15:27 | US ---
Date of service: 11/30/2018 HISTORY: abdominal pain COMPARISON: None available. TECHNIQUE: Transvaginal pelvic ultrasound was performed with longitudinal and transverse images submitted for interpretation. FINDINGS: UTERUS: Measures 5.0 x 2.5 x 3.2 cm. Normal in size and appearance. No fibroid or other mass lesion seen. ENDOMETRIUM: Measures 2.7 mm in diameter. Unremarkable. CERVIX: At the distal cervix or possibly within the vaginal vault, there is a rounded heterogeneous lesion measure 1.8 x 1.7 x 2.0 cm with questionable limited internal color Doppler blood flow. Posterior acoustic enhancement is identified. The finding could represent a solid nodule or a complex cyst. Consider follow-up MRI without contrast for added characterization. RIGHT OVARY: Measures 1.0 x 0.9 x 1.1 cm. No solid mass. Normal flow. LEFT OVARY: Measures 1.3 x 0 0.9 x 1.0 cm. No solid mass. Normal flow. FREE FLUID: No significant free fluid noted. OTHER FINDINGS: None. IMPRESSION: 1. A 2.0 cm moderately heterogeneous lesion is appreciated within the deep vaginal vault or the tip of the cervix reflecting either soft tissue mass or complex solid and cystic lesion. Further characterization by MRI is advised with without gadolinium. 2. No additional pertinent findings identified. Concordant preliminary report from [facility], 11/30/2018, 8:52 p.m..
== END 2018-12-01 14:22 | disposition home or self-care (01) ==
LOC: C.ER 10:57 → C.9E 14:15 → C.5S 11-30 07:42 → C.6T 12-01 13:57
PROVIDERS: ADMIT Internal Medicine Cardiovascular Disease; ATTEND Internal Medicine Cardiovascular Disease
DX: R55 Syncope and collapse (principal); R42 Dizziness and giddiness; I10 Essential (primary) hypertension; R00.1 Bradycardia, unspecified; E11.9 Type 2 diabetes mellitus without complications; E78.00 Pure hypercholesterolemia, unspecified; I65.29 Occlusion and stenosis of unspecified carotid artery
CPT/HCPCS: 36415; 70450; 71045; 76700; 76830; 80053; 81001; 82550; 82553; 82948; 83036; 84484; 85025; 85027; 85610; 85730; 93005; 93306; 93880; 97110; 97162; 99285; G0378; G8978; G8979; G8980; J1650; J2765; J7040